=== PATIENT | male | born 2000 | race Caucasian/White ===

== ENCOUNTER 2020-08-05 01:23 | Emergency (ER) | payer SELFPAY ==
[2020-08-05 01:24] VITALS: BP 132/67; PULSE 85; RESP 18; TEMP 36.3; O2SAT 98; BMI 30.1
--- NOTE | 2020-08-05 01:40 | CT_ITS ---
STUDY: CT BRAIN WITHOUT CONTRAST REASON FOR EXAM: Male, 20 years old. Posttraumatic headache RADIATION DOSAGE (If Supplied By Facility): CTDIvol = ( 44.99 ) mGy, DLP = ( 829.85 ) mGycm TECHNIQUE: Transaxial CT imaging of the brain was performed without administration of intravenous contrast material. Individualized dose optimization techniques were used for this CT. COMPARISON: No relevant priors. FINDINGS: Normal soft tissue structures. Normal calvarium. Normal size ventricles and extra-axial spaces for the patient''s age. Normal white matter tracts of the cerebral hemispheres. Well-defined 1.6 cm hypoattenuated lesion within the left medial temporal lobe. Normal basal ganglia and thalami. Normal brainstem. Normal cerebellum. There is no intracranial hemorrhage. There are no findings of an acute ischemic infarction. Normal visualized paranasal sinuses. CT/Brain/Head without Contrast IMPRESSION: 1. No acute intracranial abnormality. 2. Likely extravascular space within the left medial temporal lobe. Electronically Signed: Brian Herrera MD at 2:17 EDT Tel , Service support ,
--- NOTE | 2020-08-05 01:45 | EX.ED.DYSGE1 ---
HPI History of Present Illness Chief Complaint: Head Injury Informant: patient Onset/Context/Timing Onset: Today Context: Sudden Onset Timing: Continuous Current Severity: Mild Maximum Severity: Moderate Narrative Narrative: Patient is a healthy 20-year-old male who presents to the emergency department with head injury. Patient states he was walking, tripped, and fell. He struck his forehead against a mini refrigerator. He did not lose consciousness, but states he was seeing stars. Since then, he had a persistent frontal headache. He denies nausea or vomiting. He is otherwise been in his normal state of health. He is not on anticoagulants. [facility] Medical History ADD (attention deficit disorder) Home Medications NK 08/05/20 [History Last Taken Unknown] Allergy/AdvReac Type Severity Reaction Status Date / Time No Known Allergies Allergy Verified 08/05/20 01:25 Social History Smoking Status: Never smoker ROS ROS ED Constitutional Constitutional ED: Denies chills or fever(s) Eyes Eyes: Denies blurry vision or change in vision ENT ENT ED: Denies ear pain or sore throat Cardiovascular Cardiovascular: Denies chest pain or palpitations Respiratory/Chest Respiratory/Chest: Denies cough, dyspnea or dyspnea on exertion Gastrointestinal Gastrointestinal: Denies abdominal pain, nausea or vomiting Genitourinary Genitourinary ED: Denies dysuria or urinary frequency Musculoskeletal Musculoskeletal: Denies arthralgias or myalgias Integumentary Denies rash Neurologic Neurologic: Reports headache(s) Psychiatric Psychiatric: Denies anxiety or depression Endocrine Endocrinology: Denies polydipsia or polyuria Allergic/Immunologic Allergic/Immunologic ED: Denies urticaria EXAM Physical Exam Const Vital Signs: 08/05/20 01:24 Temperature 97.4 F L Temperature Source Temporal Pulse Rate 85 Respiratory Rate 18 Blood Pressure 132/67 H Blood Pressure Mean 88 Pulse Ox 98 Oxygen Delivery Method Room Air Positive well nourished and well developed General Appearance ED: well developed HEENT Reports normocephalic, head/scalp atraumatic and moist mucous membranes HEENT Narrative: Patient has hematoma in the center of the forehead. There is tenderness palpation. There is no active bleeding. trauma and tenderness Eyes PERRL and EOMs intact bilaterally Neck no lymphadenopathy and supple General: Negative for tenderness Chest Wall inspection of chest normal Resp normal respiratory effort and clear to auscultation bilaterally Cardio regular rate, regular rhythm and no murmurs GI normal to inspection, nondistended, normoactive bowel sounds Palpation: Negative for tender, guarding or rebound tenderness present Back/Spine no CVA tenderness Cervical Spine: Negative for cervical spine tenderness Thoracic Spine / Upper Back: Negative for thoracic spinal tenderness Extremity normal to inspection General Extremety ED: Negative for tenderness Neuro oriented x3 and CN's II-XII intact bilaterally Neuro Narrative: No focal deficits appreciated. Sensorium / Orientation: alert Psych mental status grossly normal Skin no rashes or lesions noted, no wounds and skin turgor normal MDM MDM MDM Narrative Medical decision making narrative: Given the patient's mechanism and tenderness, I did obtain noncontrast head CT. There is no evidence of intracranial abnormality. There is no frontal sinus fracture. Patient likely has mild concussion. He was counseled on concerning symptoms and reasons to return. At this point, the patient be discharged home. Impression 1. Concussion without loss of consciousness Radiography Diagnostic Testing: Radiology Impression Brain CT 08/05/20 01:40 IMPRESSION: 1. No acute intracranial abnormality. 2. Likely extravascular space within the left medial temporal lobe. Electronically Signed: Brian Herrera MD at 2:17 EDT Tel , Service support , Discharge Plan Triage Chief Complaint: Head Injury ED Provider: Jacob Lowry Dx/Rx/DC Orders Instructions: ED Facial Contusion Prescriptions: No Action NK RF: 0 Primary Care Provider: Care Physician,No Primary Referrals: Care Physician,No Primary [Primary Care Provider] -
== END 2020-08-05 02:27 | disposition home or self-care (01) ==
PROVIDERS: Emergency Provider Emergency Medicine
DX: S06.0X0A Concussion without loss of consciousness, initial encounter (principal); W01.198A Fall on same level from slipping, tripping and stumbling with subsequent striking against other object, initial encounter; Y93.01 Activity, walking, marching and hiking; Y92.89 Other specified places as the place of occurrence of the external cause; Y99.8 Other external cause status
CPT/HCPCS: 70450; 99283

== ENCOUNTER 2020-08-11 00:49 | Emergency (ER) | payer SELFPAY ==
[2020-08-11] VITALS (8 sets, daily range): BP systolic 136–142; BP diastolic 75–80; PULSE 75–104; RESP 14–18; TEMP 36.5; O2SAT 98–100; BMI 30.1
[2020-08-11 02:39] LABS: Absolute Lymphocyte Count 1.72 X10^3/uL (0.83-4.51); Absolute Neutrophil Count 3.9 X10^3/uL (2.0-7.7); Basophil# 0.03 X10^3/uL; Basophil% 0.5 % (0-1); Eosinophil# 0.02 X10^3/uL; Eosinophils% 0.3 % (0-5); Hematocrit 41.3 % (40-54); Hemoglobin 13.7 g/dL (13.0-16.5); Lymphocyte # 1.72 X10^3/ul (0.83-4.51); Lymphocyte % 27.6 % (19-41); Mean Corp Hgb Conc 33.2 g/dL (32-36); Mean Corpuscular Hgb 27.9 pg (27.0-32.0); Mean Corpuscular Volume 84.1 fL (80-94); Mean Platelet Vol. 9.9 fl (6.2-12.0); Monocyte# 0.57 X10^3/uL; Monocyte% 9.1 % (0-10); NRBC Flagged by Analyzer 0 % (0-5); Neutrophil # 3.85 X10^3/uL (2.7-7.7); Neutrophil % 61.9 % (47-70); Platelet Count 274 K/mm3 (150-450); RBC Distribution Width CV 12.7 % (11.6-14.6); RBC Distribution Width SD 38.5 fl (35.1-43.9); Red Blood Count 4.91 M/mm3 (4.6-6.2); White Blood Count 6.2 K/mm3 (4.4-11.0)
[2020-08-11 03:03] LABS: Alcohol, Blood (Medical)-Serum < 3.0 mg/dL
[2020-08-11 03:04] LABS: Anion Gap 6 (5-15); BUN 11 mg/dL (7-18); BUN/Creat Ratio 10.5 RATIO (10-20); Chloride 107 mmol/L (98-107); Creatinine, Serum 1.05 mg/dL (0.70-1.30); EST Glomerular Filtration Rate 95 mL/min (>60); Est Glom Filt Rate - Afr Amer 115 mL/min (>60); Estimated Creatinine Clearance 114.91 ml/min; Glucose 107 mg/dL (74-106); Potassium 3.7 mmol/L (3.5-5.1); Sodium Level 141 mmol/L (136-145)
[2020-08-11 03:07] LABS: Amphetamine Urine VISTA NEGATIVE (<1000 ng/mL); Barbiturate Urine VISTA NEGATIVE (< 200 ng/mL); Benzodiazepine Urine VISTA NEGATIVE (< 200 ng/mL); Cocaine Urine VISTA NEGATIVE (< 300 ng/mL); Ecstacy Urine VISTA NEGATIVE (< 500 ng/mL); Methadone Urine VISTA NEGATIVE (< 300 ng/mL); PCP Urine VISTA NEGATIVE (< 25 ng/mL); THC Urine VISTA NEGATIVE (< 50 ng/mL); Vista UDS pH Range 6
--- NOTE | 2020-08-11 04:48 | ED.RN ---
GREY CALLED AND SAID THAT HE DOES NOT HAVE INSURANCE, BUT HE IS IN THE PROCESS OF MEDICAID, SHE WAS GOING TO TALK TO KAIN IN [employer] THIS MORNING AND SEE IF SHE CAN HELP WITH THE PROCESS. GOING TO REFER TO RAINA
--- NOTE | 2020-08-11 05:03 | EX.ED.VIS.PS ---
HPI <Dr. Berlin Marroquin DO - Last Filed: 08/11/20 07:39> HPI - Psych History of Present Illness Chief Complaint: Mental Health Informant: patient Onset/Context/Timing Onset: Weeks (1) Conflict: Family Timing: Continuous Worsened by: Situational factors Relieved by: Nothing Associated Symptoms Associated Symptoms - Psych: Positive for Depressed, Hopelessness and Suicidal Thoughts Specific plan (suicidal thought): Hanging, or driving off the road, suicide pill Narrative Narrative: Patient presents with depression and suicidal ideation that has been getting worse over the past week. Patient states it is gradually getting worse. Patient states he had a break-up with his girlfriend recently. Patient states he also had some arguments with his friends. Patient states he has been having suicidal thoughts of hanging himself or driving off the road. Patient states he has also looked up to see if there was a suicide pill on the Internet. PFSH <Dr. Berlin Marroquin DO - Last Filed: 08/11/20 07:39> [facility] Medical History ADD (attention deficit disorder) Home Medications NK 08/05/20 [History Last Taken Unknown] Allergy/AdvReac Type Severity Reaction Status Date / Time No Known Allergies Allergy Verified 08/05/20 01:25 Social History Smoking Status: Never smoker ROS <Dr. Berlin Marroquin DO - Last Filed: 08/11/20 07:39> ROS ED Constitutional Constitutional ED: Denies chills or fever(s) Eyes Eyes: Denies blurry vision or change in vision ENT ENT ED: Denies rhinorrhea or sore throat Cardiovascular Cardiovascular: Denies chest pain or palpitations Respiratory/Chest Respiratory/Chest: Denies cough or dyspnea Gastrointestinal Gastrointestinal: Denies nausea or vomiting Genitourinary Genitourinary ED: Denies dysuria or hematuria Musculoskeletal Musculoskeletal: Denies back pain or neck pain Integumentary Denies abscess or rash Neurologic Neurologic: Denies headache(s) or weakness Psychiatric Psychiatric: Reports depression, suicidal ideation and suicidal thoughts Allergic/Immunologic Allergic/Immunologic ED: Denies mouth swelling or urticaria EXAM <Dr. Berlin Marroquin DO - Last Filed: 08/11/20 07:39> Physical Exam Const Vital Signs: 08/11/20 10:05 08/11/20 12:32 Pulse Rate 104 H 104 H Respiratory Rate 18 18 Blood Pressure 136/75 H 136/75 H Blood Pressure Mean 95 95 Pulse Ox 98 98 Oxygen Delivery Method Room Air Positive well nourished and well developed General Appearance ED: well developed HEENT normocephalic and atraumatic Neck supple and no JVD Resp normal respiratory effort and clear to auscultation bilaterally Cardio no murmurs Rate: regular rate Rhythm: regular rhythm GI non-tender and non-distended Auscultation: normoactive bowel sounds Palpation: soft Extremity normal to inspection General Extremety ED: Negative for edema or tenderness General Extremity: Negative for edema Neuro oriented x3, CN's II-XII intact bilaterally and no sensory deficits noted Sensorium / Orientation: alert Motor Exam: strength 5/5 throughout Psych mental status grossly normal Activity / Motor Behavior: avoids eye contact Speech: normal speech Mood & Affect: depressed and flat affect Thought Content: suicidality Skin Rashes: no rashes <Dr. Sera Munoz, DO - Last Filed: 08/12/20 06:56> Physical Exam Const Vital Signs: 08/11/20 10:05 08/11/20 12:32 Pulse Rate 104 H 104 H Respiratory Rate 18 18 Blood Pressure 136/75 H 136/75 H Blood Pressure Mean 95 95 Pulse Ox 98 98 Oxygen Delivery Method Room Air MDM <Dr. Berlin Marroquin, DO - Last Filed: 08/11/20 07:39> MDM MDM Narrative Medical decision making narrative: CBC and basic metabolic profile within normal limits. Hepatic profile was normal. EKG was obtained. On my interpretation, it showed a normal sinus rhythm with a rate of 77. RI interval, QRS interval, and QTc intervals were all normal. [address] was normal. There are no acute ST or T wave changes. Serum alcohol level was normal. Urine tox screen was negative. COVID-19 rapid antigen was obtained and was negative. Patient is medically cleared for psychiatric evaluation. Crisis was in to evaluate the patient. They feel the patient would benefit from inpatient treatment. They are attempting to place the patient in an inpatient psychiatric facility. Patient understands and is agreeable with the plan. All questions were answered. Lab Data Attestation: I reviewed the patient's lab results. Labs: Laboratory Results - last 24 hr 08/11/20 02:28 Total Bilirubin 0.40 Direct Bilirubin 0.12 AST 17 ALT 34 Alkaline Phosphatase 60 Total Protein 7.4 Albumin 4.1 Globulin 3.3 EKG Initial EKG: Attestation: I personally reviewed and interpreted this EKG as follows: Interpretation: Sinus Rhythm (77) and No Acute Injury Pattern <Dr. Sera Munoz, DO - Last Filed: 08/12/20 06:56> MDM MDM Narrative Medical decision making narrative: Patient signed out to me pending acceptance. He is medically cleared for psychiatric evaluation. Patient is accepted at [facility]. Lab Data Labs: Laboratory Results - last 24 hr 08/11/20 02:28 Total Bilirubin 0.40 Direct Bilirubin 0.12 AST 17 ALT 34 Alkaline Phosphatase 60 Total Protein 7.4 Albumin 4.1 Globulin 3.3 Discharge Plan Triage Chief Complaint: Mental Health ED Provider: Berlin Marroquin Dx/Rx/DC Orders Clinical Impression: Depression, Suicidal ideation Prescriptions: No Action NK RF: 0 Primary Care Provider: Care Physician,No Primary Referrals: Care Physician,No Primary [Primary Care Provider] - Disposition Disposition: Psychiatric Hospital or Unit Discharge Location: [facility] Discharge Date/Time: 08/11/20 12:37
--- NOTE | 2020-08-11 06:52 | EKG12_ITS ---
Test Reason : MEDICAL CLEARANCE Blood Pressure : / mmHG Vent. Rate : 077 BPM Atrial Rate : 077 BPM P-R Int : 128 ms QRS Dur : 086 ms QT Int : 396 ms P-R-T Axes : 046 075 045 degrees QTc Int : 448 ms Normal sinus rhythm with sinus arrhythmia Early repolarization Normal ECG Confirmed by WHIT ALLEN, EUGENE ([id number]), sports editor YESENIA CHRISTIANSON ([id number]) on 08/13/2020 1:52:26 PM Referred By: KAYLA Confirmed By:EUGENE SHERMAN MD
--- NOTE | 2020-08-11 06:59 | NURSING ---
NO OLD EKGS
[2020-08-11 07:32] LABS: AST(SGOT) 17 U/L (15-37); Alanine Aminotransfer ALT/SGPT 34 U/L (16-61); Albumin, Serum 4.1 g/dL (3.2-5.0); Alkaline Phosphatase 60 U/L (45-117); Bilirubin, Direct 0.12 mg/dL (0.00-0.30); Globulin 3.3 g/dL (2.2-4.2); Protein, Total 7.4 g/dL (6.4-8.2)
--- NOTE | 2020-08-11 07:42 | NURSING ---
FAXED EKG AND LIVER PANEL TO [facility]
--- NOTE | 2020-08-11 11:23 | ED.RN ---
Report given to Eben nurse at [facility]. Pt going to [place] [id number], room 557-A.
--- NOTE | 2020-08-11 11:45 | NURSING ---
[facility] CALLED BY CRISIS. ETA IS 45 MIN TO 1 HR
== END 2020-08-11 12:37 ==
PROVIDERS: Emergency Provider Emergency Medicine
DX: F32.9 Major depressive disorder, single episode, unspecified (principal); R45.851 Suicidal ideations
CPT/HCPCS: 80048; 80076; 80307; 82077; 85025; 87426; 93005; 99285